=== PATIENT | female | born 1965 | race Asian ===

== ENCOUNTER → 2016-06-28 | Outpatient (CLI) | payer BC ==
[~2016-06-28] MED LIST: ATOR10TA66 PO; BIOT25007 PO; BIRTH CONTROL PO; CALC-76 PO; CALC-80 PO; CYAN100053 INJ; ERGO500028 PO; HYDR-3729 PO; HYDR12.5 PO; LEVO500T69 PO; LEVO75TA6 PO; LOSA100T28 PO; LOSA50TA6 PO; LVT.112T PO; OMEG1CAP51 PO; OMG1KC PO; WARF4TAB7 PO
--- NOTE | 2016-06-28 20:23 | Diagnostic Imaging Report ---
Bilateral diagnostic mammogram. The current study was also evaluated with a Computer Aided Detection (CAD) system. INDICATION: Follow-up, right breast calcifications. COMPARISON: 12/03/2015. FINDINGS: The calcifications in the upper-outer aspect of the right breast appear to be questionably increased from the prior exam. This could be related to better visualization of portion of these calcifications and not definitely related to worsening. Otherwise, the heterogeneously dense parenchyma which may decrease mammographic sensitivity is again noted in both breasts with no adverse development. IMPRESSION: Questionable increase in the calcification group in the upper-outer aspect of the right breast. Close follow-up with six-month right breast mammogram is recommended. ACR BI-RADS Category 3: Probably benign findings. Result letter will be mailed to the patient. Note: At least 10% of breast cancer is not imaged by mammography. Dictated by: Dictated on workstation # [id number]
== END ==
LOC: RAD 13:44
PROVIDERS: ATTEND Internal Medicine
DX: R92.8 Other abnormal and inconclusive findings on diagnostic imaging of breast (principal)
CPT/HCPCS: 77066

== ENCOUNTER → 2017-01-10 | Outpatient (CLI) | payer BC ==
--- NOTE | 2017-01-10 22:58 | Diagnostic Imaging Report ---
Right breast diagnostic mammogram with tomography evaluation. The current study was also evaluated with a Computer Aided Detection (CAD) system. COMPARISON: 06/28/2016. INDICATION: Right breast calcifications, six month followup. FINDINGS: The previously seen upper-outer anterior breast calcifications are not changed from the previous exam with no adverse development. Background dense parenchyma is seen. No suspicious change from the prior studies is noted. Circumscribed stable nodule in the medial inferior aspect of the right breast is again noted. IMPRESSION: Stable calcifications in the upper-outer aspect of the right breast, likely benign. Another followup in six months when the patient is due for her bilateral mammograms is recommended. ACR BI-RADS Category 3: Probably benign findings. Result letter will be mailed to the patient. Note: At least 10% of breast cancer is not imaged by mammography. Dictated by: Dictated on workstation # [id number]
== END ==
LOC: RAD 14:12
PROVIDERS: ATTEND Nurse Practitioner Family
DX: R92.1 Mammographic calcification found on diagnostic imaging of breast (principal)

== ENCOUNTER → 2017-06-23 | Outpatient (CLI) | payer BC ==
--- NOTE | 2017-06-23 19:15 | Diagnostic Imaging Report ---
INDICATION: Digital mammogram bilateral diagnostic with 3-D tomosynthesis. This study was compared to the prior exams of 01/10/17, 06/28/16, 12/03/15 and 05/07/15. At this time, there are no current complaints. The current study was also evaluated with a Computer Aided Detection (CAD) system. FINDINGS: The previous diagnostic mammogram of the right breast performed on 01/10/17 noted stable calcifications in the upper-outer aspect of the right breast. Those calcifications are again evident on this study and do not seem to have changed significantly. I do suspect that these calcifications are benign. As they have not changed significantly since the 12/03/15 exam, I do feel it is safe for the patient to return to a regular screening mammogram schedule. The fibroglandular tissue in both breasts is dense. This does limit the sensitivity of this study. Overall, there does not appear to have been any adverse change. There is no primary or secondary sign of malignancy noted. IMPRESSION: 1. The calcifications in the right breast appear stable. Most likely, they are benign. 2. There is no evidence of malignancy involving either breast. 3. The patient should have her annual bilateral screening mammogram on schedule in June 2018. ACR BI-RADS Category 2: Benign findings. Result letter will be mailed to the patient. Note: At least 10% of breast cancer is not imaged by mammography. Dictated by: Dictated on workstation # [id number]
== END ==
LOC: RAD 14:17
PROVIDERS: ATTEND Internal Medicine
DX: R92.1 Mammographic calcification found on diagnostic imaging of breast (principal)
CPT/HCPCS: 77066

== ENCOUNTER → 2017-12-23 | Outpatient (CLI) | payer BC ==
[~2017-12-23] MED LIST changes: -LOSA100T28 PO; +LOSA100T8 PO
== END ==
LOC: LAB 13:29
PROVIDERS: ATTEND Internal Medicine
DX: B48.8 Other specified mycoses (principal)
CPT/HCPCS: 87220

== ENCOUNTER → 2018-09-08 | Outpatient (CLI) | payer BC ==
[~2018-09-08] MED LIST changes: +LOSA100T57 PO; -LOSA100T8 PO
--- NOTE | 2018-09-08 20:18 | Diagnostic Imaging Report ---
INDICATION: Screening The current study was also evaluated with a Computer Aided Detection (CAD) system. 3-D Tomographic imaging was also performed. COMPARISON: Comparison is made with prior examinations of 06/23/2017, 01/10/2017, and 06/28/2016. FINDINGS: A few benign-type calcifications. There is no dominant mass, spiculated lesion, or suspicious calcification identified. The skin, nipples, and axillae are unremarkable. IMPRESSION: Benign. ACR BI-RADS Category 2: Benign findings. Result letter will be mailed to the patient. Note: At least 10% of breast cancer is not imaged by mammography. Dictated by: Dictated on workstation # [id number]
== END ==
LOC: RAD 09:34
PROVIDERS: ATTEND Internal Medicine
DX: Z12.31 Encounter for screening mammogram for malignant neoplasm of breast (principal); I10 Essential (primary) hypertension; E53.8 Deficiency of other specified B group vitamins; D68.51 Activated protein C resistance; E03.8 Other specified hypothyroidism; R73.09 Other abnormal glucose
CPT/HCPCS: 77067

== ENCOUNTER → 2019-10-11 | Outpatient (CLI) | payer BC ==
--- NOTE | 2019-10-12 12:09 | Diagnostic Imaging Report ---
INDICATION: Routine screening. COMPARISON is made with prior mammograms from 09/08/2018 and 06/23/2017. 2-D and 3-D bilateral screening mammography was performed with CAD. Both breasts are heterogeneously dense, limiting the sensitivity of mammography. Nodular density in the lower right breast is stable. No new mass or malignant appearing microcalcifications are seen. Axillae are unremarkable. IMPRESSION: BI-RADS Category 2. No mammographic features suspicious for malignancy are identified. ACR BI-RADS Category 2: Benign findings. Result letter will be mailed to the patient. Note: At least 10% of breast cancer is not imaged by mammography. Dictated by: Dictated on workstation # [id number]
== END ==
LOC: RAD 14:29
PROVIDERS: ATTEND Internal Medicine
DX: Z12.31 Encounter for screening mammogram for malignant neoplasm of breast (principal)
CPT/HCPCS: 77063; 77067

== ENCOUNTER → 2020-10-17 | Outpatient (CLI) | payer BC ==
--- NOTE | 2020-10-17 11:21 | Diagnostic Imaging Report ---
INDICATION: Routine screening. COMPARISON is made with prior mammograms 10/11/2019 and 09/08/2018. 2-D and 3-D bilateral screening mammography was performed with CAD. Both breast are heterogeneously dense, limiting the sensitivity of mammography. A nodular density in the medial right breast appears stable. There are benign calcifications. No new mass or malignant-appearing microcalcifications are seen. Axillae are unremarkable. IMPRESSION: BI-RADS Category 2 No mammographic features suspicious for malignancy are identified. ACR BI-RADS Category 2: Benign findings. Result letter will be mailed to the patient. Note: At least 10% of breast cancer is not imaged by mammography. Dictated by: Dictated on workstation # [id number]
== END ==
LOC: RAD 08:00
PROVIDERS: ATTEND Nurse Practitioner Family
DX: Z12.31 Encounter for screening mammogram for malignant neoplasm of breast (principal)
CPT/HCPCS: 77063; 77067

== ENCOUNTER → 2022-04-09 | Outpatient (CLI) | payer BC ==
--- NOTE | 2022-04-12 09:31 | Diagnostic Imaging Report ---
INDICATION: Routine screening. COMPARISON: 10/17/2020 and 10/11/2019. TECHNIQUE: 2D and 3D bilateral screening mammography was performed with CAD. FINDINGS: Both breasts are heterogeneously dense, limiting the sensitivity of mammography. The medial right breast density is stable. No other masses are detected. No malignant-appearing microcalcifications are seen. The axillae are unremarkable. IMPRESSION: No mammographic features suspicious for malignancy are identified. ACR BI-RADS Category 2: Benign findings. Result letter will be mailed to the patient. Note: At least 10% of breast cancer is not imaged by mammography. Dictated by: Dictated on workstation # [id number]
== END ==
LOC: RAD 14:34
PROVIDERS: ATTEND Internal Medicine
DX: Z12.31 Encounter for screening mammogram for malignant neoplasm of breast (principal)
CPT/HCPCS: 77063; 77067